=== PATIENT | male | born 1975 | race African-American/Black ===

== ENCOUNTER 2022-08-06 00:23 | Day surgery (SDC) | payer OTHER, SELFPAY ==
[2022-07-27 14:49] VITALS: BMI 35.6
--- NOTE | 2022-08-06 08:23 | P.PNAN_ITS ---
Anes - Initial Pre Proc Eval Procedure: Operation Date: 08/06/22 13:15 Proposed Procedures p Screening Colonoscopy - Severiano Roger MD Date/Time: 08/06/22 08:23 Surgeon: Severiano Roger MD Pre Op Diagnosis: neoplasm screening Patient Data Age: 47 Gender: M Height: 1.91 m Weight: 129.5 kg Allergies Allergy/AdvReac Type Severity Reaction Status Date / Time No Known Allergies Allergy Verified 08/06/22 11:51 Home Medications Medication Instructions Recorded Confirmed Type ascorbic acid (vitamin C) 500 mg 500 mg PO DAILY 07/27/22 08/06/22 History tablet losartan 100 mg tablet 100 mg PO DAILY 07/27/22 08/06/22 History Patient hx anesthesia problems: none Family hx anesthesia problems: none Results Review: All pre-operative results and documents have been reviewed as part of the pre- operative evaluation. [facility] Past Medical History Medical History (Updated 08/03/22 @ 15:09 by Ra Moraes DO) Asthma Hyperlipidemia Hypertension LUIS DANIEL (obstructive sleep apnea) Social History Social History Smoking status: Current every day smoker Tobacco type: cigars Alcohol intake: current Alcohol use details: monthly Substance use type: does not use Living arrangements: with family Spiritual care concerns: No Anes - Eval Final PreProcedure Day of Procedure 08/06/22 08:23 Patient weight: obese Heart: regular rate and rhythm Lungs: clear to auscultation Airway: Mallampati scale class II Neurological: alert and oriented Last oral intake: >/= 8 hours ASA classification: III Emergent: no Anesthetic plan: proceed Anesthesia type and monitoring: general GIVS and standard monitoring Results Review: All pre-operative results and documents have been reviewed as part of the pre- operative evaluation. Informed Consent: The patient's anesthetic plan and its attendant risks and benefits were discussed with the patient/family/POA. Questions were solicited and answers provided to the satisfaction of the patient/family/POA.
[2022-08-06 11:52] VITALS: BP 170/102; PULSE 92; RESP 18; TEMP 36.8; O2SAT 100; BMI 35.4
[2022-08-06] MEDS: LACTATED RINGERS 1,000 ML 150 ML IV CONT (12:06)
--- NOTE | 2022-08-06 12:56 | PM.HPGS ---
History of Present Illness History of Present Illness Consent: Risks, benefits, and alternatives have been discussed and questions answered. Patient agrees to proceed with procedure. Chief complaint: neoplasm screening Narrative: Buddy Beltre is a 47 year old male here for first screening colonoscopy Review of Systems Constitutional: Constitutional: Denies headache(s) and Denies weakness Eyes: Eyes: Denies blurry vision ENT: Reports Normal hearing present, Denies headache(s) and Denies neck pain Cardiovascular: Cardiovascular: Denies chest pain and Denies dyspnea Respiratory: Respiratory: Denies dyspnea Gastrointestinal: Gastrointestinal: Reports no additional gastrointestinal complaints Genitourinary: Genitourinary: Denies dysuria Musculoskeletal: Musculoskeletal: Denies neck pain Integumentary/Breasts: Skin/Breast: Denies dry skin Neurologic: Reports Normal hearing present, Denies headache(s) and Denies weakness Psychiatric: Psychiatric: Denies anxiety Endocrine: Endocrine: Denies change in body appearance Hematologic/Lymphatic: Hematologic/Lymphatic: Denies easy bleeding Allergic/Immunologic: Allergic/Immunologic: Denies urticaria PMF Past Medical History Medical History (Updated 08/06/22 @ 12:56 by Severiano Roger MD) Asthma Colon cancer screening Hyperlipidemia Hypertension LUIS DANIEL (obstructive sleep apnea) Social History Social History Smoking status: Current every day smoker Tobacco type: cigars Alcohol intake: current Alcohol use details: monthly Substance use type: does not use Living arrangements: with family Spiritual care concerns: No Meds Home Medications and Allergies Home Medications Medication Instructions Recorded Confirmed Type ascorbic acid (vitamin C) 500 mg 500 mg PO DAILY 07/27/22 08/06/22 History tablet losartan 100 mg tablet 100 mg PO DAILY 07/27/22 08/06/22 History Allergies Allergy/AdvReac Type Severity Reaction Status Date / Time No Known Allergies Allergy Verified 08/06/22 11:51 Vital Signs Vital Signs - 24 hr 08/06/22 11:52 Temperature 98.3 F Pulse Rate 92 Respiratory Rate 18 Blood Pressure 170/102 H Pulse Oximetry 100 Oxygen Delivery Room Air Exam Const: General: comfortable and no acute distress HENMT: Face/Nose/Sinus: Normal nares present Eyes: General: appearance normal, both eyes and all related structures Neck: Neck: no JVD Resp: Auscultation: clear to auscultation bilaterally Cardio: Rate: regular rate Rhythm: regular rhythm GI: Inspection: non-distended GI Palp: Yes Soft to palpation Skin: General skin exam: normal color Neuro: General: gait normal Speech: normal speech Extrem: General: normal to inspection Psych: Mental Status: mental status grossly normal Assessment and Plan Assessment and plan (1) Colon cancer screening: Code(s): Z12.11 - Encounter for screening for malignant neoplasm of colon Status: Acute Assessment and Plan: colonoscopy
[2022-08-06 13:17] VITALS: BP 172/107; PULSE 86; RESP 20; O2SAT 99
[2022-08-06 13:27] VITALS: BP 174/109; PULSE 72; RESP 19; O2SAT 99
[2022-08-06 13:37] VITALS: BP 161/97; PULSE 60; RESP 20; O2SAT 100
== END 2022-08-06 13:46 | disposition home or self-care (01) ==
PROVIDERS: PCP Emergency Medicine; Visit Provider Internal Medicine Gastroenterology
PROC: 0DJD8ZZ Inspection of Lower Intestinal Tract, Via Natural or Artificial Opening Endoscopic (ICD-10-PCS; CPT 45378; principal; 2022-08-06 13:15)
DX: Z12.11 Encounter for screening for malignant neoplasm of colon (principal); I10 Essential (primary) hypertension; G47.33 Obstructive sleep apnea (adult) (pediatric); F17.290 Nicotine dependence, other tobacco product, uncomplicated; E66.9 Obesity, unspecified; Z68.35 Body mass index [BMI] 35.0-35.9, adult
CPT/HCPCS: 45378; J2704; J7120

== ENCOUNTER 2023-06-20 08:52 | Outpatient (CLI) | payer OTHER, SELFPAY ==
--- NOTE | 2023-06-20 09:15 | EST_ITS ---
Patient Info Name: Buddy Beltre Age: 47 years : 1975 Gender: Male Ht: 75 in Wt: 285 lbs BSA: 2.66 m2 HR: 68 bpm BP: 147 / 101 mmHg Heart Rhythm: Sinus Rhythm Exam Date: 06/20/2023 9:29 AM Exam Location: [facility] Patient Status: Outpatient Admit Date: 06/20/2023 Staff Ordering Physician: Mandeep Crum DO Attending Provider: Mandeep Crum DO Exercise Technologist: Maria Eugenia Jones CT Exercise Physician: Mandeep Crum DO Exam Type: CA stress test treadmill Study Info Indications R07.89 - Other chest pain A treadmill exercise stress test was performed. Summary 1. 1. Negative Peewee exercise stress test for ischemic ST changes by ECG criteria. 2. 2. Reduced functional capacity, achieving 8 METs of workload. 3. 3. Baseline hypertension. 4. 4. Appropriate HR response to exercise. 5. 5. Appropriate HR recovery at 1 minute post exercise. 6. 6. No imaging with stress testing. 7. 7. Patient informed of the above results. Protocol: Peewee Stress ECG Details Stage: REST Duration (min): 1 min : 15 sec Speed (mph): 0.0 Grade (%): 0 HR (bpm): 70 SBP (mmHg): 147 DBP (mmHg): 101 METS: --- Stage: REST Duration (min): 7 min : 55 sec Speed (mph): 0.0 Grade (%): 0 HR (bpm): 73 SBP (mmHg): 147 DBP (mmHg): 101 METS: --- Stage: STAGE 1 Duration (min): 1 min : 0 sec Speed (mph): 1.7 Grade (%): 10 HR (bpm): 93 SBP (mmHg): 147 DBP (mmHg): 101 METS: --- Stage: STAGE 1 Duration (min): 2 min : 0 sec Speed (mph): 1.7 Grade (%): 10 HR (bpm): 100 SBP (mmHg): 147 DBP (mmHg): 101 METS: --- Stage: STAGE 1 Duration (min): 3 min : 0 sec Speed (mph): 1.7 Grade (%): 10 HR (bpm): 105 SBP (mmHg): 143 DBP (mmHg): 92 METS: --- Stage: STAGE 2 Duration (min): 1 min : 0 sec Speed (mph): 2.5 Grade (%): 12 HR (bpm): 117 SBP (mmHg): 143 DBP (mmHg): 92 METS: --- Stage: STAGE 2 Duration (min): 2 min : 0 sec Speed (mph): 2.5 Grade (%): 12 HR (bpm): 129 SBP (mmHg): 158 DBP (mmHg): 92 METS: --- Stage: STAGE 2 Duration (min): 3 min : 0 sec Speed (mph): 2.5 Grade (%): 12 HR (bpm): 139 SBP (mmHg): 158 DBP (mmHg): 92 METS: --- Stage: STAGE 3 Duration (min): 0 min : 43 sec Speed (mph): 3.4 Grade (%): 14 HR (bpm): 148 SBP (mmHg): 172 DBP (mmHg): 90 METS: --- Stage: RECOVERY Duration (min): 0 min : 16 sec Speed (mph): 1.5 Grade (%): 0 HR (bpm): 147 SBP (mmHg): 172 DBP (mmHg): 90 METS: --- Stage: RECOVERY Duration (min): 1 min : 16 sec Speed (mph): 0.0 Grade (%): 0 HR (bpm): 120 SBP (mmHg): 172 DBP (mmHg): 90 METS: --- Stage: RECOVERY Duration (min): 2 min : 16 sec Speed (mph): 0.0 Grade (%): 0 HR (bpm): 101 SBP (mmHg): 172 DBP (mmHg): 90 METS: --- Stage: RECOVERY Duration (min): 2 min : 55 sec Speed (mph): 0.0 Grade (%): 0 HR (bpm): 105 SBP (mmHg
== END 2023-06-20 08:53 | disposition home or self-care (01) ==
PROVIDERS: PCP Emergency Medicine; Visit Provider Internal Medicine Cardiovascular Disease
DX: R07.9 Chest pain, unspecified (principal)
CPT/HCPCS: 93017